=== PATIENT | female | born 1960 ===

== ENCOUNTER 2024-07-14 06:17 | Day surgery (SDC) | payer OTHER ==
[2024-07-06 09:41] VITALS: BP 113/75
[~2024-07-14] VITALS: Ht 162.6 cm; Wt 80.3 kg
[~2024-07-14 06:17] MED LIST: ADVIL200 M1 PO; ALENDRONATE SOD10 MG PO; BUPROPION HCL75 MG; EZALLOR SPRINKL20 MG PO; STRESS B WITH1 EACH PO; ZYRTEC10 M3 PO
[2024-07-14] MEDS ORDERED: CEFAZOLIN SODIUM 1,000 MG VIAL ONE (07:59)
[2024-07-14] MEDS ORDERED: POVIDONE-IODINE 118 ML BOTT TOP ONE (09:11)
[2024-07-14] MEDS ORDERED: MORPHINE SULFATE 4 MG/ML VIAL IV PRN (11:15)
[2024-07-14] MEDS ORDERED: PROMETHAZINE HCL 50 MG/ML AMPUL IM ONE (11:15)
== END 2024-07-14 15:30 | disposition home or self-care (01) ==
LOC: CIR.AMB 06:17
PROVIDERS: ATTEND Obstetrics & Gynecology
DX: N84.0 Polyp of corpus uteri (principal); N95.0 Postmenopausal bleeding